=== PATIENT | female | born 1985 | race Caucasian/White ===

== ENCOUNTER → 2019-02-02 | Outpatient (CLI) | payer OTHER | LOC: MHCPAIN 08:52 | DX: G89.29 Other chronic pain (principal); M47.817 Spondylosis without myelopathy or radiculopathy, lumbosacral region; M54.16 Radiculopathy, lumbar region; M53.3 Sacrococcygeal disorders, not elsewhere classified | CPT/HCPCS: G0463 ==

== ENCOUNTER → 2019-02-23 | Outpatient (CLI) | payer OTHER | LOC: MHCPAIN 12:27 | DX: M51.27 Other intervertebral disc displacement, lumbosacral region (principal); M47.26 Other spondylosis with radiculopathy, lumbar region ==

== ENCOUNTER → 2019-03-25 | Outpatient (CLI) | payer OTHER | LOC: MHCPAIN 11:11 | DX: M47.817 Spondylosis without myelopathy or radiculopathy, lumbosacral region (principal); M53.3 Sacrococcygeal disorders, not elsewhere classified | CPT/HCPCS: G0463 ==

== ENCOUNTER 2023-03-01 12:10 | Day surgery (SDC) | payer OTHER ==
[~2023-03-01] VITALS: Ht 170.2 cm; Wt 81.6 kg
[2023-03-01] VITALS (7 sets, daily range): BP systolic 102–122; BP diastolic 60–81; PULSE 54–96; TEMP 97.2–98
[2023-03-01] MEDS ORDERED: STRATTERA 40MG40 MG PO (13:34)
[2023-03-01] MEDS ORDERED: NORCO 325 MG-51 TAB PO (14:44)
--- NOTE | 2023-03-01 16:05 | NUR ---
1441 RETURNS TO ROOM 4 FROM OR PER CART. AWAKE, TALKATIVE. RESP UNLABORED. FAMILIARIZED WITH SURROUNDINGS. VITAL SIGNS OBTAINED. REPORTS MODERATE LEFT FLANK/BACK DISCOMFORT. CALL LIGHT AT SIDE. IN ROOM 1450 AMBULATES TO BATHROOM WITH STANDBY ASSIST. STAYS AT PATIENT SIDE. PATIENT VOIDS. URINE DARK PINK 1520 AMBULATES TO BATHROOM. AT SIDE. VOIDS 1535 TOLERATES PO WATER, JUICE AND SALTINES WITHOUT NAUSEA 1550 AGAIN AMBULATES TO BATHROOM VOIDS WITHOUT DIFFICULTY. URINE PINK 1605 PO ROXICODONE GIVEN FOR CONTINUED DISCOMFORT. 1608 SL LEVSIN GIVEN 1610 DISCHARGE INSTRUCTIONS REVIEWED. PATIENT VERBALIZES UNDERSTANDING. COPY PROVIDED IN DISCHARGE FOLDER/ 1615 PATIENT RATES DISCOMFORT 3/10 SITS ON EDGE OF BED, DRESSES WITH MINIMAL ASSIST FORM , THEN AMBULATES TO BATHROOM. VOIDS WITHOUT DIFFICULTY
== END 2023-03-01 16:05 | disposition home or self-care (01) ==
LOC: SDCO 12:10
DX: N20.1 Calculus of ureter (principal)
CPT/HCPCS: J0690; J1100; J1885; J1940; J2405; J2704; J3010; J7120